=== PATIENT | female | born 1960 | race Caucasian/White ===

== ENCOUNTER → 2019-04-11 | Outpatient (CLI) | payer OTHER ==
[~2019-04-11] MED LIST: IBUP200T58 PO; IOHEXOL 180 MG/ML 10 ML VIAL. ONE; LEVO50TA PO; LOSA-73 PO; ONDA4TAB7 PO; VENL75CA PO; methylPREDNISolone ACETATE 80 MG/ML VIAL. ONE
--- NOTE | 2019-04-11 23:32 | PAIN ---
DATE OF SERVICE: 04/11/2019 INITIAL CONSULTATION FOR PAIN CLINIC CHIEF COMPLAINT: Neck and left upper extremity pain. HISTORY OF PRESENT ILLNESS: This is a 59-year-old female who presents with history of pain in the base of the neck and left shoulder for about a year and a half. The patient reports that she has been dealing with the pain for about a year and a half and was worked up initially as a headache, but she reports she does not have a headache. She does have a history of migraines, but she has had occipital nerve blocks so far and some trigger point injections as well as physical therapy and exercise without any significant decrease in her pain. The patient reports the pain is in the base of the neck, shooting into the left shoulder and left upper extremity in the posterior aspect of the shoulder, anterior shoulder and into the biceps and forearm on the left side, it is becoming more constant, described as sharp and shooting with tingling and numbness at times in the arm and shoulder radiating into the left arm only and of burning quality as well. The patient reports it is worse with repetitive motions, raising her hand over her head on the left side. Weight lifting, using or driving a car and type of repetitive motions as well exacerbate the pain. The patient reports it is better with sitting or resting, but it can hurt with resting as well. The patient reports it awakens her up from sleep at night, wakes once or twice, does not affect her bowel or bladder control or ability to walk. She has been taking Advil without any significant decrease in pain. The patient did have an MRI scan of the cervical spine that is showing C4-C5 diffuse disk bulge and endplate osteophytosis with mild left facet arthropathy and left greater than right uncovertebral arthropathy, moderate to severe left foraminal stenosis with deformation of the spinal cord with moderate central canal stenosis measuring 6.5 mm in anterior posterior dimension, C5-C6 shows bilateral uncovertebral arthropathy and mild left foraminal stenosis with deformation of the spinal cord with moderate central canal stenosis at 6.2 mm in anterior posterior dimension. The patient rates her disability rating from 0-10, 10 being the worst and 0 in all categories, except for recreational activities and that is a 2 on a scale of 10. PAST MEDICAL HISTORY: Significant for hypertension, migraine headaches, asthma, use of CPAP. PAST SURGICAL HISTORY: Previous surgeries include thyroidectomy, cholecystectomy, colon surgery, hernia repairs x 2, previous hysterectomy and Yaquelin fundoplication, also lumbar laminectomy in 2013. CURRENT MEDICATIONS: Include Synthroid, losartan, Effexor, Zofran, and Advil. ALLERGIES: THE PATIENT IS ALLERGIC TO MORPHINE, REGLAN AND AZITHROMYCIN. FAMILY HISTORY: Significant for heart disease. SOCIAL HISTORY: The patient does not smoke, drinks alcohol, maybe once a month, does not use any illegal, illicit or recreational drugs. She is , lives with her spouse, lives locally in [place], [place]. REVIEW OF SYSTEMS: The patient's review of systems is positive for those items mentioned in history of present illness. All systems reviewed and otherwise negative. It is complete, full and well documented on the patient's chart. PHYSICAL EXAMINATION: VITAL SIGNS: The patient's blood pressure is 133/87, pulse 73, respirations 18, temperature 97.5 degrees Fahrenheit, height is 5 feet 3 inches, weight is 143 pounds. GENERAL: The patient is awake, alert, oriented, appropriate, very pleasant demeanor. HEENT: Head shows normocephalic, atraumatic. Extraocular movements are intact and symmetrical. Oral cavity shows mucous membranes moist and pink. Dentition is intact. NECK: Shows anterior throat supple without palpable lymphadenopathy noted. Swallow reflex symmetrical. CHEST: Shows normal on inspection. Breath sounds clear to auscultation bilaterally. HEART: Shows S1, S2 clear. No murmurs auscultated. ABDOMEN: Soft, nontender, nondistended. No palpable organomegaly is noted. No rebound or guarding demonstrated. BACK: Shows spine grossly in the midline, normal-appearing cervical lordotic curvature, thoracic kyphotic curvature, some minor flattening of lumbar lordotic curvature with well-healed surgical scar in the lumbar distribution. The patient's cervical paraspinous muscles show symmetrical on inspection, with palpation shows some moderate tenderness diffusely bilaterally going diffusely without significant radiation. The patient shows some moderate tenderness with palpation in the inferior aspect of the cervical paraspinous musculature and into the superior medial trapezius on the left greater than the right, but without specific trigger points and without radiation of pain. The patient has good rotational motion of cervical spine, both laterally greater than 45 degrees closer to 90 degrees as well as full extension, full forward flexion without significant increase in pain. EXTREMITIES: The patient's upper extremities show deep tendon reflexes 2+ in the biceps and triceps tendons. Motor exam is 5/5 with big data admin strength, biceps and triceps flexion. Peripheral pulses are 2+ radial. No peripheral edema is noted bilaterally. Shoulder shrug is strong and intact without loss of strength on resistance, but with some moderate pain in the left shoulder radiating to the left upper extremity. There is anterior deltoid and biceps with resistance. This is true with abduction of the shoulder to 90 degrees, but without loss of strength on resistance bilaterally. The patient's skin shows warm and dry, good turgor. No edema. No sores, rashes or bruising. IMPRESSION: 1. This is a 59-year-old female with approximately a year and half history of neck and left upper extremity pain in a radicular fashion. 2. MRI scan of cervical spine as noted. 3. Hypertension. PLAN: Options were discussed with the patient and the patient's who accompanied her visit today including conservative medical managements, continued physical therapies, interventional techniques. She would like to pursue interventional techniques. We discussed a cervical epidural steroid injection using description as well as anatomical models to describe the procedure. Risks were then discussed including, but not limited to bleeding, infection, possibility of epidural hematoma, subsequent neurological compromise, dural puncture, headaches, spinal cord and/or nerve damage, side effects of steroid medication and poor results regarding pain control. The patient understands and wished to proceed. The patient will return to clinic in approximately 2 weeks for followup. She was counseled as to return appointment, activity level and side effects to be aware of. DIAGNOSES: Cervical radiculopathy with cervical degenerative disk disease and cervical spinal stenosis. PROCEDURE: Cervical epidural steroid injection, translaminar approach at C5-C6 level using C-arm fluoroscopic guidance under sterile prep and drape using local anesthetic. MEDICATION INJECTED: A total of 120 mg Depo-Medrol plus 5 mL of preservative-free normal saline and 2 mL of contrast. CONDITION AT DISCHARGE: Stable. The patient tolerated procedure well, had no complications. JESUS GARCIA MD DR: LEWIS/ana JOB#: [id number] / [id number]
== END | disposition home or self-care (01) ==
LOC: PNCL 08:26
PROVIDERS: ATTEND Anesthesiology
DX: M50.123 Cervical disc disorder at C6-C7 level with radiculopathy (principal); M48.02 Spinal stenosis, cervical region; I10 Essential (primary) hypertension; G43.909 Migraine, unspecified, not intractable, without status migrainosus; J45.909 Unspecified asthma, uncomplicated; E89.0 Postprocedural hypothyroidism; Z90.49 Acquired absence of other specified parts of digestive tract; Z90.710 Acquired absence of both cervix and uterus; Z98.890 Other specified postprocedural states; Z88.6 Allergy status to analgesic agent; Z88.1 Allergy status to other antibiotic agents; Z88.8 Allergy status to other drugs, medicaments and biological substances; Z72.89 Other problems related to lifestyle
CPT/HCPCS: 62321; J1040; Q9965; 62323

== ENCOUNTER → 2020-02-26 | Outpatient (CLI) | payer OTHER ==
[~2020-02-26] MED LIST changes: +ALBU2.5V8 IH; +CEFD300C PO; +CYAN10002 IM; -IOHEXOL 180 MG/ML 10 ML VIAL. ONE; +PROC10TA57 PO; +VENL50TA PO; -methylPREDNISolone ACETATE 80 MG/ML VIAL. ONE
[2020-02-26 10:59] LABS: BASO # 0.1 x10^3/uL (0.0-0.2); BASO % 1 % (0-3); EOS # 0.2 x10^3/uL (0.0-0.7); EOS % 3 % (0-3); HEMATOCRIT 39.4 % (36.0-47.0); HEMOGLOBIN 13.3 g/dL (12.0-15.5); LYMPH # 1.8 x10^3/uL (1.0-4.8); LYMPH % 29 % (24-48); MEAN CORPUSCULAR HEMOGLOBIN 31 pg (25-35); MEAN CORPUSCULAR HGB CONC 34 g/dL (31-37); MEAN CORPUSCULAR VOLUME 91 fL (79-100); MONO # 0.6 x10^3/uL (0.0-1.1); MONO % 9 % (0-9); NEUT # 3.6 x10^3/uL (1.8-7.7); NEUT % 58 % (31-73); PLATELET COUNT 247 x10^3/uL (140-400); RED BLOOD COUNT 4.35 x10^6/uL (3.50-5.40); WHITE BLOOD COUNT 6.3 x10^3/uL (4.0-11.0)
[2020-02-26 11:12] LABS: ALBUMIN 3.7 g/dL (3.4-5.0); CALCIUM 9.1 mg/dL (8.5-10.1); CREATININE 0.8 mg/dL (0.6-1.0); GFR 72.9; POTASSIUM 3.6 mmol/L (3.5-5.1); TOTAL BILIRUBIN 0.3 mg/dL (0.2-1.0); TOTAL PROTEIN 7.5 g/dL (6.4-8.2)
== END ==
LOC: SURGPAT 09:09
PROVIDERS: ATTEND Neurological Surgery
DX: Z01.812 Encounter for preprocedural laboratory examination (principal); Z20.828 Contact with and (suspected) exposure to other viral communicable diseases
CPT/HCPCS: 80053; 85025; 87641; U0003

== ENCOUNTER 2020-03-03 10:30 | Observation (INO) | payer OTHER ==
--- NOTE | 2020-03-02 15:49 | HP ---
ADMIT DATE: 03/03/2020. DATE OF SURGERY: 03/03/2020. HISTORY OF PRESENT ILLNESS: The patient is a pleasant 60-year-old who has difficulty with neck and left arm pain, the pain in her left shoulder and upper arm. When she turns her head to the left, her pain increases. She has had conservative measures without benefit. On imaging studies, there is foraminal narrowing on the left at C4-C5 and C5-C6. She also has a vascular abnormality at C4-C5. I had these findings were reviewed by Dr. Smith at [facility] and discussed the findings with the patient. PAST MEDICAL HISTORY: Anemia, asthma, excessive bleeding, headaches and migraines, hypertension, kidney stones, thyroid disease. PAST SURGICAL HISTORY: Thyroidectomy in 2001, hysterectomy 2005, Yaquelin fundoplication in 2008 and 2015, cholecystectomy in 2003, ostomy in 2014, a rectoectomy in 2015, hernia repair 2016, a lumbar surgery in 2011 and 2012. FAMILY HISTORY: Alzheimer's, bleeding problems, cancer, heart problems and disease, hypertension, migraine headaches. SOCIAL HISTORY: She is employed at a dental office. . Denies substance abuse. Denies tobacco use. Drinks alcohol 1-2 times per month. Drinks soda and tea daily. ALLERGIES: MORPHINE, REGLAN, AND AZITHROMYCIN. CURRENT MEDICATIONS: Effexor, levothyroxine, losartan, Zofran, and Advil. REVIEW OF SYSTEMS: A 12-point review of systems was obtained and is noncontributory except for that mentioned above. PHYSICAL EXAMINATION: NEUROSURGERY EXAMINATION: GENERAL APPEARANCE: Alert, pleasant, no acute distress. HEAD: Normocephalic and atraumatic. NECK AND THYROID: Daaj-bv-[id number] tenderness with palpation of posterior cervical region. SKIN: Warm and dry. MUSCULOSKELETAL: Cervical paraspinal muscle bulk is normal, restricted range of motion of the cervical spine, normal range of motion of the upper extremities bilaterally. EXTREMITIES: No clubbing, cyanosis, or edema. NEUROLOGIC: Alert and oriented x 3, normal recent and remote memory. Strength 5/5 in bilateral upper and lower extremities, sensory was intact to light touch in the upper and lower extremities. Reflexes are present and symmetric in the upper and lower extremities bilaterally, normal gait. IMAGING: As previously described, there is neural foraminal narrowing at C4-C5 and C5-C6 on the left. ASSESSMENT/ PLAN: After discussion, the consensus was to operate posteriorly at C4-C5 and C5-C6 on the left, performing a medial facetectomy and hemilaminotomy. I did discuss this with the patient. She understands. She understands the risks, the technique and the expected postoperative course. She understands that there is a possibility that this procedure will not help her. She would like to proceed. We will make the arrangements. AMBER CHENG MD DR: NATALIYA/ana JOB#: [id number] / [id number] GLORIA
[2020-03-03] VITALS (9 sets, daily range): BP systolic 102–130; BP diastolic 54–73
[~2020-03-03] VITALS: Ht 157.5 cm; Wt 60.3 kg
[~2020-03-03 10:30] MED LIST changes: +BACITRACIN 50,000 UNIT in IV NORMAL SALINE 1000ML BAG 1,000 ML IRR ONE; +GELATIN SPONGE SIZE 100. ONE; +HYDROmorphone 2 MG/ML VIAL IV PRN; +KETOROLAC 60 MG/2 ML VIAL. ONE; +LIDOCAINE 1% PF 2 ML VIAL. ID PRN; +LIDOCAINE 1%/EPI 1:100,000 20 ML VIAL. ONE; +LIDOCAINE 2% PF 5 ML VIAL. ONE; +MORPHINE SULFATE 2 MG/ML VIAL. IV PRN; +ONDANSETRON PF 4 MG/2 ML VIAL. IV PRN; +PROCHLORPERAZINE 10 MG/2 ML VIAL. IV PRN; +PROPOFOL 10 MG/ML (20ML) VIAL. IV ONE; +PROPOFOL 50 ML IV ONE; +REMIFENTANIL 2 MG VIAL. IV ONE; +ROCURONIUM 50 MG/5 ML VIAL. ONE; +SUCCINYLCHOLINE 200 MG/10 ML VIAL. ONE; +THROMBIN TOPICAL 20,000 UNIT SPRAY.SYRN KIT TP ONE; +fentaNYL PF VIAL 100 MCG/2 ML VIAL IV PRN; +fentaNYL PF VIAL 100 MCG/2 ML VIAL ONE
[2020-03-03] MEDS ORDERED: SCOPOLAMINE 1.5MG PATCH. TD ONE (10:45)
--- NOTE | 2020-03-03 11:04 | EKG ---
[facility] [address] [place] [address] Test Date: 2020-03-03 Test Time: 11:00:42 Pat Name: KAYLEY LUJAN Department: Room: Gender: F Web Applications Administrator: JDONALD : [id number] Requested By: AMBER CHENG Order Number: [id number] Reading MD: Measurements Intervals [place] Rate: 74 P: 32 AL: 150 QRS: 48 QRSD: 76 T: 13 QT: 374 QTc: 420 Interpretive Statements SINUS RHYTHM NORMAL ECG RI6.02 No previous ECG available for comparison
[2020-03-03] MEDS: IV RINGERS,LACTATED 1000ML 1,000 ML IV SCH ×2 (11:06→15:26)
[2020-03-03] MEDS ORDERED: MIDAZOLAM HCL/PF 2 MG/2 ML VIAL. ONE (11:27)
[2020-03-03] MEDS ORDERED: 0.9 % SODIUM CHLORIDE 10 ML DISP.SYRIN. IV PRN (13:30)
[2020-03-03] MEDS ORDERED: diphenhydrAMINE HCL 25 MG CAPSULE PO PRN (13:30)
[2020-03-03] MEDS ORDERED: fentaNYL PF VIAL 100 MCG/2 ML VIAL IVP PRN (13:30)
[2020-03-03] MEDS ORDERED: HYDROcodone/APAP 5/325MG 1 TAB TABLET PO PRN (13:30)
[2020-03-03] MEDS ORDERED: NALOXONE 0.4 MG/ML VIAL. IV PRN (13:30)
[2020-03-03] MEDS ORDERED: MAG HYDROX/ALUMINUM HYD/SIMETH 30 ML ORAL.SUSP PO PRN (13:30)
[2020-03-03] MEDS ORDERED: MAGNESIUM HYDROXIDE 2,400 MG/30 ML ORAL.SUSP. PO PRN (13:30)
[2020-03-03] MEDS ORDERED: CALCIUM CARBONATE 500 MG TAB.CHEW PO PRN (13:30)
[2020-03-03] MEDS ORDERED: ALBUTEROL SULFATE 2.5 MG/3 ML NEBU. NEB PRN (13:30)
[2020-03-03] MEDS: POTASSIUM CL 20MEQ D5-0.45NACL 1,000 ML IV SCH (13:30)
[2020-03-03] MEDS ORDERED: ONDANSETRON PF 4 MG/2 ML VIAL. IVP PRN (13:30)
[2020-03-03] MEDS ORDERED: METHOCARBAMOL 750 MG TABLET PO PRN (13:30)
[2020-03-03] MEDS ORDERED: ACETAMINOPHEN 325 MG TABLET. PO PRN (13:30)
[2020-03-03] MEDS ORDERED: DESFLURANE 61 TO 120 MINUTES IH ONE (13:37)
[2020-03-03] MEDS ORDERED: DEXAMETHASONE SOD PHOS 4 MG/ML VIAL ONE (13:37)
[2020-03-03] MEDS ORDERED: PHENYLEPHRINE in 0.9% NACL PF 1 MG/10 ML SYRINGE. IV ONE (14:40)
[2020-03-03] MEDS ORDERED: fentaNYL PF VIAL 100 MCG/2 ML VIAL ONE (15:39)
[2020-03-03] MEDS: fentaNYL PF VIAL 100 MCG/2 ML VIAL IV PRN ×3 (15:50→16:34)
[2020-03-03] MEDS ORDERED: PROCHLORPERAZINE 5 MG TABLET. PO PRN (16:00)
--- NOTE | 2020-03-03 16:30 | OP ---
DATE OF SURGERY: 03/03/2020 PREOPERATIVE DIAGNOSES: Foraminal narrowing and cervical radiculopathy, left C4-C5, C5-C6. POSTOPERATIVE DIAGNOSES: Foraminal narrowing and cervical radiculopathy, left C4-C5, C5-C6. OPERATION: Posterior cervical hemilaminotomy, medial facetotomy left C4-C5, C5-C6 with decompression of dura and nerve root. The operation was done with multimodality monitoring including EMG, SSEP, motor-evoked potentials. We also used fluoroscopy and microscopic dissection. SURGEON: Amarjit Cheng M.D. PICKER / PACKER: OLIVIA Mg, assisted with all aspects of the surgery. OPERATIVE INDICATIONS: The patient is a very pleasant 60-year-old who developed intractable neck and left arm pain, which did not improve with conservative measures. She did have a vascular abnormality on her cervical imaging studies behind the body of C4 and I did discuss these findings with Neurosurgery at [facility]. The consensus was that a posterior operation would be the safest to decompress her. I discussed all of this with the patient who understood and wished to go ahead. DESCRIPTION OF PROCEDURE: Following general endotracheal anesthesia, she was positioned prone in Chen pins. Posterior cervical region was prepped and draped in standard fashion. MANJINDER hose and AV impulse boots were applied for DVT prophylaxis. A microscope was draped. Fluoroscopy was then brought in the field. Monitoring was established. Ancef 2 grams was given less than 1 hour prior to initiation of the surgery. Using fluoroscopic imaging, an incision was made extending from the C4 to C6. I dissected down through skin and subcutaneous tissue. I reflected the paraspinal muscles, placed a [place] micro disc retractor, confirmed my position fluoroscopically. I brought the microscope during this time and using high speed air drill, I burred down a generous hemilaminotomy at C5-C6. I worked out laterally following the nerve root quite far laterally and trimmed the overlying bone, which was remaining after I had drilled and thinned it with a high-speed air drill with a 2 mm micro Kerrison. I irrigated and laid Gelfoam over the hemilaminotomy site and moved superiorly to C4-C5 in a similar fashion, drilled a laminotomy and worked laterally with the drill, thinning the bone. Medially, I used the 2 mm micro Kerrison but more laterally the foramen was quite narrow and I used a 1 mm very gently and opened the foramen and decompressed fully the root. I was easily able to pass a blunt hook out along the course of the root after I decompressed on both levels. After decompression, I placed Gelfoam over this opening. I irrigated. I removed the retractor, obtained hemostasis in the muscle, closed the wound in layers with absorbable suture and the skin was closed with skin sue. I felt the surgery went very well. AMARJIT CHENG MD DR: NATALIYA/ana JOB#: [id number] / [id number] GLORIA
--- NOTE | 2020-03-03 17:31 | NUR ---
received from recovery. she is rating her pain a "2-3". she has good sensation, pulses bilateral upper extremities. denies numbness or tingling. she has ambulated to the bathroom and voided without problems. she has her cpap at bedside. dressing to back of neck has a scant amount of serosanguineous drainage.
[2020-03-03] MEDS: VENLAFAXINE XR 37.5 MG CAP.ER.24H. PO SCH (20:51)
[2020-03-03] MEDS: DOCUSATE SODIUM 100 MG CAPSULE. PO SCH (20:51)
[2020-03-03] MEDS ORDERED: CEFDINIR 300 MG CAPSULE PO SCH (21:00)
[2020-03-03] MEDS: HYDROcodone/APAP 5/325MG 1 TAB TABLET PO PRN (21:50)
[2020-03-04 02:25] VITALS: BP 117/62
[2020-03-04] MEDS: HYDROcodone/APAP 5/325MG 1 TAB TABLET PO PRN ×3 (02:31→12:36)
[2020-03-04] MEDS: POTASSIUM CL 20MEQ D5-0.45NACL 1,000 ML IV SCH (02:50)
[2020-03-04 06:28] VITALS: BP 108/59
[2020-03-04] MEDS ORDERED: ALBUTEROL SULFATE 2.5 MG/3 ML NEBU. NEB PRN (06:39)
[2020-03-04] MEDS ORDERED: LEVOTHYROXINE 50 MCG TABLET PO SCH (07:00)
[2020-03-04] MEDS: DOCUSATE SODIUM 100 MG CAPSULE. PO SCH (08:09)
[2020-03-04] MEDS: VENLAFAXINE XR 37.5 MG CAP.ER.24H. PO SCH (08:09)
[2020-03-04 08:12] VITALS: BP 100/55
[2020-03-04] MEDS ORDERED: LOSARTAN POTASSIUM 50 MG TABLET. PO SCH (09:00)
[2020-03-04] MEDS ORDERED: HYDR-2761 PO (10:56)
[2020-03-04] MEDS ORDERED: DOCU-153 PO (10:56)
[2020-03-04] MEDS ORDERED: METH750T2 PO (10:56)
--- NOTE | 2020-03-04 10:57 | DISCH ---
DISCHARGE INSTRUCTIONS Condition on Discharge Condition on Discharge: Stable Activity After Discharge Activity Instructions for Disc: Activity as tolerated, Avoid exertion, Walk in house Other activity instructions: no driving for a week Bathing Instructions: Shower-keep dressing dry, No Tub Bath until see Lifting Instructions after Dis: No heavy lifting, No pulling or pushing, Do not lift >10 pounds Exercise Instruction after Dis: Exercise per therapy Driving Instructions after Dis: No driving for 2 weeks Weight Bearing Status after Di: No restrictions, Full weight bearing, As tolerated Diet after Discharge Diet after Discharge: Regular Additional Diet Restrictions: resume home diet Diet Texture: Regular Wound Incision Care Wound/Incision Care: Ice to area for comfort, Keep wound/cast CDI, Change dressing Other wound/incision instructi: may shower 48 hrs after surgery, NO direct water to incision, no antibiotic Wound Care Equipment: Dressings Checks after Discharge DC Comment: increase fruits, vegetables and fiber ;attempt BM q 2-3 days Follow-Up Follow Up With: call [phone] for a 2 week post op appt with Dr. Walls's nurse Treatment/Equipment after DC Adaptive Equipment Issued: AMBER Owens MD Mar 04, 2020 10:57
[2020-03-04 11:18] VITALS: BP 107/56
--- NOTE | 2020-03-04 12:00 | NUR ---
reviewed written discharge instructions with Carmen. reviewed restrictions to activities of daily living such as bathing lifting and driving. reviewed and demonstrated dressing change. saline lock nikolay'd
--- NOTE | 2020-03-04 16:41 | DS ---
DATE OF DISCHARGE: 03/04/2020 DATE OF SURGERY: 03/03/2020. DISCHARGE DIAGNOSES: Foraminal narrowing and cervical radiculopathy, left C4-C5, C5-C6. OPERATION PERFORMED: Posterior cervical hemilaminotomy, medial facetectomy, left C4-C5, C5-C6 with decompression of dura and nerve root. HISTORY OF PRESENT ILLNESS: The patient is a pleasant 60-year-old who developed intractable neck and left arm pain, which did not improve with conservative measures. She did have a vascular abnormality on her cervical imaging studies behind the body of C4 and I discussed these findings with Neurosurgery at [facility]. The consensus was that a posterior operation would be the safest to decompress her. I spoke with her about the surgery and the risk and expected postoperative course and she wished to proceed. HOSPITAL COURSE: She was admitted to the floor postoperatively where she has done well. Her left arm pain has resolved. Physical therapy was initiated and instruction was given to her regarding her activities. Her pain is well controlled and she is in good condition to discharge home. DISCHARGE MEDICATIONS: She will resume her medications per the MRAD. DISCHARGE INSTRUCTIONS: She was instructed regarding incision care, activity restrictions and expectations for the next several weeks. She will follow up in our office in 2 weeks. She understands to call with any questions or concerns. AMBER CHENG MD DR: TATYANA/ana JOB#: [id number] / [id number]
[2020-04-02] MEDS ORDERED: CYANOCOBALAMIN (VITAMIN B-12) 1,000 MCG/ML VIAL IM SCH (09:00)
== END 2020-03-04 13:20 | disposition home or self-care (01) ==
LOC: SURG 10:30 → 4 SOUTHEST 15:00
PROVIDERS: ADMIT Neurological Surgery; ATTEND Neurological Surgery
DX: M47.22 Other spondylosis with radiculopathy, cervical region (principal); M48.02 Spinal stenosis, cervical region; M47.899 Other spondylosis, site unspecified; J45.909 Unspecified asthma, uncomplicated; I10 Essential (primary) hypertension; D64.9 Anemia, unspecified; E89.0 Postprocedural hypothyroidism; Z87.442 Personal history of urinary calculi; Z90.49 Acquired absence of other specified parts of digestive tract; Z90.710 Acquired absence of both cervix and uterus; Z98.890 Other specified postprocedural states
CPT/HCPCS: 63045; 63048; 69990; 93005; 96374; 96375; 97110; 97161; G0378; G0379; J0330; J0690; J1100; J1885; J2250; J2370; J2405; J2704; J3010; J3490; J7030; J7120; 76000